=== PATIENT | male | born 1940 | race Caucasian/White ===

== ENCOUNTER → 2020-06-03 10:34 | Outpatient (BNVA) | payer MEDICARE, SELFPAY | PROVIDERS: Family Provider Nurse Practitioner Family; PCP Nurse Practitioner Family; Visit Provider Nurse Practitioner Family | DX: E03.9 Hypothyroidism, unspecified (principal); E78.2 Mixed hyperlipidemia; I10 Essential (primary) hypertension; Z00.00 Encounter for general adult medical examination without abnormal findings; Z12.5 Encounter for screening for malignant neoplasm of prostate; Z79.899 Other long term (current) drug therapy | CPT/HCPCS: 80053; 80061; 83036; 84443; 85025; G0103 ==

== ENCOUNTER → 2020-06-06 12:17 | Outpatient (BNVA) | payer MEDICARE, SELFPAY | PROVIDERS: Family Provider Nurse Practitioner Family; PCP Nurse Practitioner Family; Visit Provider Internal Medicine | DX: U07.1 COVID-19 (principal); R06.02 Shortness of breath | CPT/HCPCS: 80048; 83880; 87635 ==

== ENCOUNTER 2020-07-02 09:22 | Outpatient (CLI) | payer MEDICARE, SELFPAY ==
[2020-07-02 09:58] VITALS: BMI 26.2
--- NOTE | 2020-07-02 09:58 | ECG_ITS ---
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 Interpretive Statements NAME OF STUDY: LEXISCAN SESTAMIBI STRESS TEST INDICATION: SOB PROCEDURE: At the baseline, the blood pressure was 156/83 mmHg, oxygen saturation 94% with a heart rate of 67 bpm. The electrocardiogram showed normal sinus rhythm, normal axis with nonspecific ST depression in inferior leads. Poor anterior R wave progression. The Lexiscan was infused over a period of 20 seconds. A total of 0.4 milligrams of Lexiscan was infused. The stress phase was continued for a total of 5 minutes. Heart rate at the end of the stress phase was 93 bpm, oxygen saturation 94% with a blood pressure of 161/88 mmHg. The EKG at the peak infusion revealed sinus rhythm with no significant ST-T wave changes. PACs noted during Lexiscan infusion. Study was terminated due to protocol completion. Sestamibi was injected 20 seconds after the Lexiscan infusion. Blood pressure at the end of the recovery phase was 162/90 mmHg, oxygen saturation 93% with a heart rate of 98 beats per minute. Isolated PVCs noted in recovery. CONCLUSION: 1. No significant EKG changes with the LexiScan infusion. 2. No LexiScan induced chest pain or cardiac arrhythmia. 3. Normal blood pressure and heart rate response. 4. Sestamibi/sestamibi perfusion scan pending; see separate report. Electronically Signed On 07-02-2020 19:04:53 WET WASHER MACHINE by Madiha Fry M.D. [id number]
--- NOTE | 2020-07-02 09:58 | NMCV_ITS ---
NM pa perf SPECT r/s* [id number] Lisa Soler Age: 80 Gender: M : 1940 Exam Date: 07/02/2020 09:58 Ordering Phys: JENNIFER Sutton APRN Technologist: DARIAN Vasques Exam Location: [facility] Indications: SHORTNESS OF BREATH STRESS TEST Please see separate stress test report in [facility] for full findings IMAGE PROTOCOL Rest/Stress 1 Lexiscan Day Radiopharmaceutical Dose (mCi) Administration Site Administered by Rest: Tc-99m 10.6 IV DARIAN Molina Sestamibi Stress:Tc-99m 32.5 IV DARIAN Molina Sestamibi Rest: 02-Jul-2020 60 Discovery 630 Stress: 02-Jul-2020 30 Discovery 630 0.4mg Lexiscan. Images obtained in supine and prone position. SPECT RESULTS Technical Quality: Excellent Raw Data Analysis: Normal Image Corrections: No attenuation or motion correction applied Summed Stress Score: 0 Summed Rest Score: 0 Summed Difference Score: 0 PERFUSION FINDINGS SPECT images demonstrate homogeneous tracer distribution throughout the myocardium. FUNCTIONAL RESULTS (calculated via Gated SPECT) Stress Image LV EF (%): 44 Stress EDV (mL):126 TID: 1.18 Stress ESV (mL):70 FUNCTIONAL FINDINGS: The left ventricle is normal in size. Transient Ischemia Dilatation of 1.2. There is mildly reduced left ventricular global systolic function. The left ventricular ejection fraction is reduced with a value of 44%. There is mildly decreased wall thickening. IMPRESSIONS 1. Myocardial perfusion imaging is normal. 2. The left ventricular ejection fraction is reduced with a value of 44%. There is mildly decreased wall thickening. 3. Transient ischemic dilation index mildly elevated at 1.2. This may represent hypertensive response or subendocardial ischemia. Clinical correlation is advised. 4. No coronary ischemia based on the study. Madiha Fry MD (Electronically Signed) Final Date: 02 July 2020 18:59 S
[2020-07-02] MEDS: regadenoson 0.4 Mg/5 ml Syringe IVP (11:27)
[2020-07-02 11:40] VITALS: BP 162/90; PULSE 90
== END 2020-07-02 09:23 | disposition home or self-care (01) ==
LOC: CDL 09:29
PROVIDERS: PCP Nurse Practitioner Family; Visit Provider Internal Medicine
DX: R06.02 Shortness of breath (principal); I47.2 Ventricular tachycardia; R94.39 Abnormal result of other cardiovascular function study
CPT/HCPCS: 78452; 93017; A9500; J2785

== ENCOUNTER 2020-07-16 11:22 | Inpatient (IN) | payer MEDICARE, SELFPAY ==
[2020-07-16] VITALS (14 sets, daily range): BP systolic 105–189; BP diastolic 56–101; PULSE 70–118; RESP 18–25; TEMP 36.5–36.6; O2SAT 86–100; BMI 26.4
--- NOTE | 2020-07-16 11:30 | ECG_ITS ---
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 Measurements Intervals [place] Rate: 99 P: GA: QRS: -5 QRSD: 92 T: 86 QT: 355 QTc: 457 Interpretive Statements SINUS RHYTHM WITH PAC'S SEPTAL MYOCARDIAL INFARCTION , PROBABLY OLD [40+ ms Q WAVE IN V1/V2] No previous ECG available for comparison Electronically Signed On 07-16-2020 20:28:56 PM TECHNICIAN by Maidha Fry M.D. [email or web address]/[id number] f
--- NOTE | 2020-07-16 11:30 | XR_ITS ---
WS: [id number] Portable AP upright chest, 07/16/2020 Clinical Data: sob Comparison: PA and lateral chest, 09/11/2007. Findings: Bilateral lower lobe patchy opacities are present. These opacities could represent atelecta sis and/or pneumonia. The heart is enlarged. The aortic arch and descending aorta are slightly tortuo us. There may be a small left effusion. No pneumothorax is seen. The pulmonary vascularity is not inc reased. XR/XR chest 1V portable [id number] Impression: 1. Bilateral patchy lower lobe opacities which could represent atelectasis and/ or pneumonia. 2. Recommend repeat chest x-ray in one to 2 days. 3. Atherosclerosis and cardiomegaly. 4. Small left pleural effusion.
--- NOTE | 2020-07-16 12:10 | CT_ITS ---
WS: [id number] CT CHEST ANGIOGRAPHY WITH REFORMATS HISTORY: hemoptysis TECHNIQUE: Contiguous axial images are obtained through the chest during arterial injection of intrav enous contrast. Images are reconstructed to evaluate the pulmonary arteries. MIP imaging also reviewe d. All CT scans at [facility] use at least one of these dose optimization techniques: aut omated exposure control; mA and/or kV adjustment per patient size (includes targeted exams where dose is matched to clinical indication); or iterative reconstruction. CONTRAST: Omnipaque 350; 95 mL IV. DLP: 593.2 mGy.cm COMPARISON: 10/21/2010 Good opacification of the pulmonary arteries. No central or proximal emboli identified. Beyond the se gmental branches the opacification becomes limited. Normal size pulmonary artery. Moderate atheroscle rosis without aneurysm involving the aorta. Mild enlargement of the LEFT heart chambers. There is a l arge circumferential pericardial effusion. Diameter posterior to the LEFT ventricle is 2.1 cm. Diffuse mild groundglass attenuation throughout the lungs and interstitial edema. Small bilateral lay ering pleural effusions. No pneumonia or mass. Calcified bilateral hilar lymph nodes. No suspicious l ymph nodes. No adrenal mass. Mild tricuspid regurgitation into the hepatic veins. Mild anasarca. CT/CT angio chest PE protcl [id number] IMPRESSION: 1. No pulmonary embolism. 2. Large circumferential pericardial effusion. 3. Small bilateral pleural effusions. 4. Moderate pulmonary edema.
--- NOTE | 2020-07-16 12:13 | W.ED.SOB ---
HPI - SOB/Dyspnea General: Chief Complaint: Shortness of Breath/Dyspnea Stated Complaint: phy ref/heart issues Time Seen by Provider: 07/16/20 11:52 Source: patient and family Mode of arrival: ambulatory Limitations: no limitations History of Present Illness: HPI Narrative: Patient is a 80-year-old male who was recently diagnosed with A. fib a few months ago and started on Xarelto. He has been feeling short of breath for about 3 months now that has been progressively worsening. He thought it was bronchitis and has been given antibiotics for these. Antibiotics helped just a little bit but symptoms return. It was during the work-up for his bronchitis that he was discovered to have A. fib. He his PCP give him a trial of Lasix 20 mg twice daily to see if he helped. Last night while sleeping he had significant paroxysmal nocturnal dyspnea around 1 AM and felt like he was drowning. He had to sleep a reclining in his recliner after that. Urgent care therefore asked him to come to the emergency department to be evaluated. He also has dyspnea on exertion. MD elicited complaint: shortness of breath and cough Timing: constant and progressively worsening Severity: severe Exacerbating factors: lying flat and exertion Relieving factors: rest Associated symptoms: Reports cough and hemoptysis (This morning he noticed that); Deny abdominal pain, chest congestion, chest pain, diaphoresis, dizziness, extremity pain, fever(s), lightheadedness, myalgias, nausea, orthopnea, palpitations, paresthesias, polydipsia, polyuria, rash, sense of impending doom, syncope or vomiting Review of Systems General: Reports: 10 or more systems reviewed and unremarkable except in HPI and below Const: Denies: fever(s) or diaphoresis Eyes: Denies: change in vision or blurry vision ENMT: Denies: throat pain, enlarged tonsils, odynophagia, hoarseness, mouth pain or swelling of lips/tongue Card: Denies: chest pain, palpitations, lightheadedness, syncope or orthopnea Resp: Reports: hemoptysis (This morning he noticed that); Denies: chest congestion GI: Denies: abdominal pain, nausea or vomiting : Denies: flank pain, dysuria, urinary frequency, urinary urgency or urinary hesitancy Musc: Denies: extremity pain Skin/Breast: Denies: rash, pruritus or erythema Neuro: Denies: dizziness Endo: Denies: polyuria or polydipsia PFSH ED PFSH: Medical History (Updated 07/16/20 @ 17:05 by Mare Abbott MD, [facility]) Atrial flutter BPH (benign prostatic hyperplasia) Essential hypertension Hyperlipidemia Hypothyroidism Surgical History History of AAA (abdominal aortic aneurysm) repair Family History (Updated 07/16/20 @ 16:25 by Antoine Soto MD) Mother Diabetes CAD (coronary artery disease) Social History Smoking and tobacco status: former smoker Quit status (tobacco): has quit using tobacco Second hand smoke exposure: No Smoking risk assessment/counseling performed?: No Alcohol intake: never Desire information about alcohol rehabilitation?: No Counseling given: No Desire information about substance/drug rehabilitation?: No Counseling given: No Physical Exam Const: COMMON NORMALS: no acute distress, average body habitus, patient oriented x3, no limitations, healthy appearing, alert and well nourished HENMT: COMMON NORMALS: normocephalic, atraumatic and moist oral mucous membranes HEAD & SCALP: normocephalic and atraumatic Neck/C-Spine: COMMON NORMALS: no meningeal signs and no JVD Resp: COMMON NORMALS: normal respiratory effort, No retractions, No use of accessory muscles and percussion normal AUSCULTATION: rales bilateral at the base PERCUSSION: percussion normal Cardio: COMMON NORMALS: no JVD, regular rate, regular rhythm, S1 normal heart sound present, S2 normal heart sound present, No gallops present (Cardio), No clicks present (Cardio), No murmurs present (Cardio), No rub (Cardio) and Peripheral pulses 2+ throughout RATE: regular rate RHYTHM: regular rhythm HEART SOUNDS: S1 normal heart sound present and S2 normal heart sound present PERIPHERAL PULSES: Peripheral pulses 2+ throughout GI: COMMON NORMALS: Normal to inspection, nondistended, normoactive bowel sounds present, Soft to palpation, non-tender, No hepatosplenomegaly present, no masses and no bruits PALPATION: Yes Soft to palpation and Yes No hepatosplenomegaly present Extremity: COMMON NORMALS: normal to inspection, full ROM, capillary refill normal and no calf tenderness GENERAL: Yes edema (2+ pitting) Neuro: COMMON NORMALS: patient oriented x3 SENSORIUM/ORIENTATION: Yes alert MENINGEAL SIGNS: Yes no meningeal signs Skin: COMMON NORMALS: no rashes or lesions noted, no wounds, turgor normal, no jaundice, no petechiae and no mottling GENERAL SKIN EXAM: no rashes or lesions noted and turgor normal Course Reevaluation(s): Reevaluation #1: Discussed his lab and imaging findings with him. He has pulmonary edema most likely from CHF. He also has a large pericardial effusion on CT. proBNP elevated. Because of his significant shortness of breath at home and his findings on imaging he is advised to be admitted to the hospital for further evaluation and management. He voiced understanding and is in agreement with the plan. Time: 16:00 Consultations: Consultation #1: Discussed the patient Dr. Soto, hospitalist. He kindly accepted the patient to his service. Time: 16:30 Vital Signs: Vital signs: Vital Signs Temperature 97.7 F 07/16/20 11:44 Pulse Rate 103 H 07/16/20 17:51 Respiratory Rate 18 07/16/20 17:51 Blood Pressure 134/94 07/16/20 17:51 Pulse Oximetry 92 07/16/20 17:51 MDM - SOB/Dyspnea MDM Narrative: Medical decision making narrative: 80-year-old male with new onset CHF with CHF exacerbation, with pericardial and pleural effusions. He also has significant shortness of breath at home although he is not hypoxic here in the emergency department. He is admitted to the hospital for further evaluation and management of CHF exacerbation. Differential Diagnosis: Shortness of Breath Differential Diagnosis: Likely acute exacerbation of chronic obstructive airways disease, congestive heart failure and community acquired pneumonia Medical Records: Attestation: I reviewed the patient's medical records. Lab Data: Attestation: I reviewed the patient's lab results. Labs: Lab Results 07/16/20 07/16/20 07/16/20 Range/Units 12:45 12:45 12:45 WBC 9.0 (4.0-10.0) 10^3/ uL RBC 4.96 (4.1-5.3) 10^6/u L Hgb 13.7 (11.7-16.6) g/dL Hct 42.4 (42.0-52.0) % MCV 85.5 (80-94) fL MCH 27.6 L (28.0-34.0) pg MCHC 32.3 (30.0-36.0) g/dL RDW 16.0 H (12.1-15.1) % Plt Count 197 (130-400) 10^3/c mm MPV 10.3 (7.4-10.4) fL Neut % (Auto) 73.3 % Lymph % (Auto) 19.4 % Marin % (Auto) 6.6 % Eos % (Auto) 0.1 % Baso % (Auto) 0.4 % Neut # (Auto) 6.61 (1.8-7.7) 10^3/u L Lymph # (Auto) 1.8 (0.8-4.8) 10^3/u L Marin # (Auto) 0.6 (0.2-0.9) 10^3/u L Eos # (Auto) 0.0 (0.0-0.8) 10^3/u L Baso # (Auto) 0.0 (0.0-0.1) 10^3/u L Nucleated RBC % (a uto) 0 % Nucleated RBCs # 0.0 /100WBC Sodium 140 (136-145) mmol/L Potassium 3.7 (3.5-5.1) mmol/L Chloride 104 (98-107) mmol/L Carbon Dioxide 23 (22-29) mmol/L Anion Gap 16.7 (5-19) BUN 9 (8-23) mg/dL Creatinine 0.8 (0.7-1.2) mg/dL GFR Calculation Not Reportable Glucose 96 (65-115) mg/dL Calculated Osmolal ity 289 (285-295) mOsm/k g Calcium 9.1 (8.5-10.5) mg/dL Total Bilirubin 1.4 H (0.15-1.2) mg/dL AST 22 (0-40) U/L ALT 17 (0-41) U/L Alkaline Phosphata se 128 (40-130) IU/L Troponin T Baselin e 64 H (0-15) ng/L Troponin T 120 Min [place] (0-15) ng/L Delta Troponin T (0-10) ABS# NT-Pro-B Natriuret Pep 1661 H (0-450) pg/mL Total Protein 7.5 (6.6-8.7) g/dL Albumin 3.9 (3.5-5.2) g/dL Globulin 3.6 (1.3-4.6) g/dL 07/16/20 Range/Units 14:59 WBC (4.0-10.0) 10^3/ uL RBC (4.1-5.3) 10^6/u L Hgb (11.7-16.6) g/dL Hct (42.0-52.0) % MCV (80-94) fL MCH (28.0-34.0) pg MCHC (30.0-36.0) g/dL RDW (12.1-15.1) % Plt Count (130-400) 10^3/c mm MPV (7.4-10.4) fL Neut % (Auto) % Lymph % (Auto) % Marin % (Auto) % Eos % (Auto) % Baso % (Auto) % Neut # (Auto) (1.8-7.7) 10^3/u L Lymph # (Auto) (0.8-4.8) 10^3/u L Marin # (Auto) (0.2-0.9) 10^3/u L Eos # (Auto) (0.0-0.8) 10^3/u L Baso # (Auto) (0.0-0.1) 10^3/u L Nucleated RBC % (a uto) % Nucleated RBCs # /100WBC Sodium (136-145) mmol/L Potassium (3.5-5.1) mmol/L Chloride (98-107) mmol/L Carbon Dioxide (22-29) mmol/L Anion Gap (5-19) BUN (8-23) mg/dL Creatinine (0.7-1.2) mg/dL GFR Calculation Glucose (65-115) mg/dL Calculated Osmolal ity (285-295) mOsm/k g Calcium (8.5-10.5) mg/dL Total Bilirubin (0.15-1.2) mg/dL AST (0-40) U/L ALT (0-41) U/L Alkaline Phosphata se (40-130) IU/L Troponin T Baselin e (0-15) ng/L Troponin T 120 Min [place] 62.72 H (0-15) ng/L Delta Troponin T -1.28 L (0-10) ABS# NT-Pro-B Natriuret Pep (0-450) pg/mL Total Protein (6.6-8.7) g/dL Albumin (3.5-5.2) g/dL Globulin (1.3-4.6) g/dL Imaging Data^: CXR: Attestation: I personally reviewed and interpreted this imaging study as follows: Radiologist's impression: [facility] [address] [facility] [place] [address] XRay Report Signed Patient: Lisa Soler #: [id number] : 1Acct#:[id number] Age/Sex: 80 / MADM Date: 07/16/20 Loc: [facility]/Bed: Attending Dr: Ordering Provider/Ordering MD: Kostas Ellis MD Date of Service: 07/16/20 Procedure(s): XR chest 1V portable [id number] Accession Number(s): [id number] Report Number: [id number] WS: [id number] Portable AP upright chest, 07/16/2020 Clinical Data: sob Comparison: PA and lateral chest, 09/11/2007. Findings: Bilateral lower lobe patchy opacities are present. These opacities could represent atelectasis and/or pneumonia. The heart is enlarged. The aortic arch and descending aorta are slightly tortuous. There may be a small left effusion. No pneumothorax is seen. The pulmonary vascularity is not increased. XR/XR chest 1V portable [id number] Impression: 1. Bilateral patchy lower lobe opacities which could represent atelectasis and/or pneumonia. 2. Recommend repeat chest x-ray in one to 2 days. 3. Atherosclerosis and cardiomegaly. 4. Small left pleural effusion. Dictated By:Sena Spears MD Signed By:Sena Spears MDSigned Date/Time:07/16/20 1202 DD/ 1200 CTA Chest: Radiologist's impression: [facility] [address] [place] [address] CT Scan Report Signed Patient: Lisa Soler #: [id number] : 1Acct#:[id number] Age/Sex: 80 / MADM Date: 07/16/20 Loc: [facility]/Bed: Attending Dr: Ordering Provider/Ordering MD: Mare Abbott MD, [facility] Date of Service: 07/16/20 Procedure(s): CT angio chest PE protcl [id number] Accession Number(s): [id number] Report Number: [id number] WS: [id number] CT CHEST ANGIOGRAPHY WITH REFORMATS HISTORY: hemoptysis TECHNIQUE: Contiguous axial images are obtained through the chest during arterial injection of intravenous contrast. Images are reconstructed to evaluate the pulmonary arteries. MIP imaging also reviewed. All CT scans at [facility] use at least one of these dose optimization techniques: automated exposure control; mA and/or kV adjustment per patient size (includes targeted exams where dose is matched to clinical indication); or iterative reconstruction. CONTRAST: Omnipaque 350; 95 mL IV. DLP: 593.2 mGy.cm COMPARISON: 10/21/2010 Good opacification of the pulmonary arteries. No central or proximal emboli identified. Beyond the segmental branches the opacification becomes limited. Normal size pulmonary artery. Moderate atherosclerosis without aneurysm involving the aorta. Mild enlargement of the LEFT heart chambers. There is a large circumferential pericardial effusion. Diameter posterior to the LEFT ventricle is 2.1 cm. Diffuse mild groundglass attenuation throughout the lungs and interstitial edema. Small bilateral layering pleural effusions. No pneumonia or mass. Calcified bilateral hilar lymph nodes. No suspicious lymph nodes. No adrenal mass. Mild tricuspid regurgitation into the hepatic veins. Mild anasarca. CT/CT angio chest PE protcl [id number] IMPRESSION: 1. No pulmonary embolism. 2. Large circumferential pericardial effusion. 3. Small bilateral pleural effusions. 4. Moderate pulmonary edema. Dictated By:Delmy Ocampo DO Signed By:Delmy Ocampo DOSigned Date/Time:07/16/20 1421 DD/ 1414 EKG Data^: EKG 1: Attestation: I personally reviewed and interpreted this EKG as follows: EKG Interpretation Date: 07/16/20 EKG interpretation time: 12:35 Prior EKG tracings: not available for review Interpretation: Atrial fibrillation Heart rate is [address] changes. EKG 2: Attestation: I personally reviewed and interpreted this EKG as follows: EKG Interpretation Date: 07/16/20 EKG interpretation time: 14:28 Prior EKG tracings: available for review Interpretation: Atrial fibrillation. Heart rate [address] changes. EKG 3: Attestation: I personally reviewed and interpreted this EKG as follows: EKG Interpretation Date: 07/16/20 EKG interpretation time: 17:44 Prior EKG tracings: available for review Interpretation: Atrial fibrillation. Heart rate [address] changes. Unchanged from earlier Discharge Plan Discharge Patient Disposition: Admitted As Inpatient Admit Provider: Antoine Soto Clinical Impression: CHF exacerbation, Pulmonary edema Condition: Stable Coding Level of Care Code ED Global Supply Chain Vice President for Chg Fwd Exam Comprehensive
[2020-07-16 12:51] LABS: Basophils % 0.4 %; Eosinophils % 0.1 %; Hematocrit 42.4 % (42.0-52.0); Hemoglobin 13.7 g/dL (11.7-16.6); Lymphocytes # 1.8 10^3/uL (0.8-4.8); Lymphocytes % 19.4 %; Mean Corpuscular HGB Conc 32.3 g/dL (30.0-36.0); Mean Corpuscular Hemoglobin 27.6 pg (28.0-34.0); Mean Corpuscular Volume 85.5 fL (80-94); Mean Platelet Volume 10.3 fL (7.4-10.4); Monocytes # 0.6 10^3/uL (0.2-0.9); Monocytes % 6.6 %; Neutrophils # 6.61 10^3/uL (1.8-7.7); Neutrophils % 73.3 %; Nucleated Red Blood Cells % 0 %; Platelet Count 197 10^3/cmm (130-400); Red Blood Count 4.96 10^6/uL (4.1-5.3)
--- NOTE | 2020-07-16 13:30 | ECG_ITS ---
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 Measurements Intervals [place] Rate: 90 P: SC: QRS: -18 QRSD: 89 T: 89 QT: 362 QTc: 445 Interpretive Statements ATRIAL FIBRILLATION WITH ABERRANT CONDUCTION OR VENTRICULAR PREMATURE COMPLEXES SEPTAL MYOCARDIAL INFARCTION , PROBABLY OLD [40+ ms Q WAVE IN V1/V2] No previous ECG available for comparison Electronically Signed On 07-17-2020 17:41:59 CIRCULATION ASSISTANT by Ronny North M.D. [id number]
[2020-07-16 13:32] LABS: Troponin(5th) Baseline 64 ng/L (0-15)
[2020-07-16 13:41] LABS: Alanine Aminotransferase 17 U/L (0-41); Albumin Level 3.9 g/dL (3.5-5.2); Alkaline Phosphatase 128 IU/L (40-130); Anion Gap 16.7 (5-19); Aspartate Amino Transferase 22 U/L (0-40); Blood Urea Nitrogen 9 mg/dL (8-23); Calcium 9.1 mg/dL (8.5-10.5); Carbon Dioxide 23 mmol/L (22-29); Chloride 104 mmol/L (98-107); Globulin 3.6 g/dL (1.3-4.6); Glucose 96 mg/dL (65-115); NT Pro B Type Natriuretic Pept 1661 pg/mL (0-450); Osmolality Calculated 289 mOsm/kg (285-295); Potassium 3.7 mmol/L (3.5-5.1); Sodium 140 mmol/L (136-145); Total Bilirubin 1.4 mg/dL (0.15-1.2); Total Protein 7.5 g/dL (6.6-8.7)
[2020-07-16] MEDS: iohexol 350 mg/mL 100 mL Btl IV (14:15)
[2020-07-16] MEDS: FUROsemide 10 mg/mL SDV 4mL 40 MG IVP (14:24)
--- NOTE | 2020-07-16 14:29 | USCV_ITS ---
Ryder Lisa Age: 80 Gender: M : 1940 Exam Date: 07/16/2020 15:11 Ordering Phys: Mare Abbott MD [facility] Technologist: Flako Lei Exam Location: [facility] – [place] Indication: effusion, SOB BP: 150 / 90 HR: 103 Rhythm: Sinus Technical Quality: Adequate MEASUREMENTS (Male / Female) Normal Values 2D ECHO LV Diastolic Diameter PLAX 4.6 cm 4.2 - 5.9 / 3.9 - 5.3 cm LV Systolic Diameter PLAX 3.4 cm IVS Diastolic Thickness 1.1 cm 0.6 - 1.0 / 0.6 - 0.9 cm IVS Systolic Thickness 1.5 cm LVPW Diastolic Thickness 1.3 cm 0.6 - 1.0 / 0.6 - 0.9 cm LVPW Systolic Thickness 1.2 cm LVOT Diameter 2.0 cm LV Ejection Fraction 2D Teich 50.9 % LV Ejection Fraction MOD 2C 50.3 % LV Ejection Fraction 2C AL 49.9 % LA Diameter 3.8 cm LA Width 4.8 cm LA Height 5.5 cm RA Width 3.7 cm RA Height 5.4 cm M-MODE LV Diastolic Diameter MM 4.7 cm 4.2 - 5.9 / 3.9 - 5.3 cm LV Systolic Diameter MM 3.5 cm LV Ejection Fraction MM Teich 51.4 % IVS Diastolic Thickness MM 1.5 cm 0.6 - 1.0 / 0.6 - 0.9 cm IVS Systolic Thickness MM 1.5 cm LVPW Diastolic Thickness MM 1.4 cm 0.6 - 1.0 / 0.6 - 0.9 cm LVPW Systolic Thickness MM 1.8 cm RV Diastolic Diameter MM 2.2 cm Aortic Annulus Diameter 3.1 cm LA Ao Ratio MM 1.3 MV E Point Septal Separation 1.4 cm DOPPLER AV Peak Velocity 162.0 cm/s LVOT Peak Velocity 75.0 cm/s AV Area Cont Eq vti 1.6 cm squared AV Area Cont Eq pk 1.5 cm squared MV Area PHT 5.0 cm squared Mitral E to A Ratio 1.3 MV E' Velocity 149.0 cm/s Mitral E to LV E' Septal Ratio 18.1 TR Peak Velocity 122.0 cm/s TR Peak Gradient 6.0 mmHg TV Peak E Velocity 85.0 cm/s Right Atrial Pressure 3.0 mmHg Pulmonary Artery Systolic Pressu 9.0 mmHg FINDINGS Left Ventricle Normal left ventricular size and wall thickness. LV systolic function is grossly borderline reduced. LVEF is 45 to 50%. Normal left ventricular wall thickness. Diastolic function cannot be assessed because of atrial fibrillation. Right Ventricle The right ventricle is normal in size and function. Right Atrium The right atrium is normal in size. Left Atrium The left atrium is enlarged. Mitral Valve Atrial valve is thickened without significant stenosis or prolapse. There is mild mitral regurgitation. Aortic Valve Aortic valve is calcified. There is mild aortic stenosis with aortic valve area of 1.57 cm squared and mean gradient across aortic valve of 5 mmHg. There is no aortic regurgitation. Tricuspid Valve Structurally normal tricuspid valve without significant stenosis or regurgitation. Pulmonary artery systolic pressure is normal. Pulmonic Valve Structurally normal pulmonic valve without significant stenosis. There is no pulmonic regurgitation. Pericardium There is a small to moderate pericardial effusion. No echocardiographic signs of tamponade. Aorta Normal ascending aorta dimension. CONCLUSIONS LV systolic function is borderline reduced. LVEF is 45 to 50%. Regional wall motion abnormalities cannot be assessed because of atrial fibrillation. Diastolic function cannot be assessed because of atrial fibrillation. Mild mitral regurgitation is present. Mild aortic stenosis is noted. There is a small to moderate sized pericardial effusion. No echocardiographic signs of tamponade. No comparison studies are available. Ronny North MD (Electronically Signed) Final Date: 16 July 2020 17:57 S
[2020-07-16 15:59] LABS: Troponin 5 2HR 62.72 ng/L (0-15)
[2020-07-16 16:01] LABS: Troponin 5 2HR Delta -1.28 ABS# (0-10)
--- NOTE | 2020-07-16 16:21 | PM.HP ---
Providers/Chief Complaint Primary Care Provider: MARISELA Garrido Chief Complaint: phy ref/heart issues History of Present Illness Lisa Soler is a 80 year old male with a past medical history of hypertension, hyperlipidemia, BPH, hypothyroidism, abdominal aortic aneurysm repair, history of extensive peripheral vascular disease status post multiple thrombectomies and grafting, former smoker, recent diagnosis of atrial fibrillation placed on Xarelto, recent diagnosis of heart failure placed on Lasix, recent negative stress test, who presents to [facility] due to shortness of breath. Patient tells me that he is recent diagnosed with atrial fibrillation and CHF, placed on Xarelto Lasix. Since March he has been experiencing shortness of breath, patient is fairly physically active, although retired, with his day-to-day activities he was doing fine, until recently, he has developed shortness of breath with exertion, it is now progressed to his shortness of breath at rest, minimal bilateral extreme edema, no hemoptysis, no chest pain, no calf pain, no calf swelling, no exposure to COVID-19, no fevers, chills, no cough. No diagnosis of COPD. No diagnosis of CVA. But does have extensive peripheral vascular disease status post thrombectomies and grafting, when he was young. Patient tells me that over the last few days he has become much more short of breath, with orthopnea, paroxysmal nocturnal dyspnea. Review of Systems Const: Denies: fever(s), chills, fatigue or malaise Eyes: Denies: change in vision or blurry vision ENMT: Denies: nasal congestion Card: Reports: palpitations, edema and syncope; Denies: chest pain Resp: Denies: dyspnea, productive cough, non-productive cough or wheezing GI: Denies: abdominal pain, nausea, vomiting, hematemesis, diarrhea, constipation, hematochezia or melena : Denies: flank pain, difficulty urinating, dysuria or urinary frequency Musc: Denies: neck pain or back pain Skin/Breast: Denies: rash Neuro: Denies: headache(s), dizziness or vertigo Psych: Denies: anxiety or depression Endo: Denies: polyuria or polydipsia Medications/Allergies Home Medications Medication Instructions Recorded Confirmed Last Taken Type aspirin 81 mg tablet,delayed 81 mg PO DAILY 06/06/20 07/16/20 07/16/20 History release levothyroxine 50 mcg capsule 50 mcg PO DAILY 06/06/20 07/16/20 07/16/20 History tamsulosin 0.4 mg capsule 0.4 mg PO DAILY 06/06/20 07/16/20 07/15/20 History finasteride 5 mg tablet 5 mg PO DAILY #90 tab 06/25/20 07/16/20 07/15/20 Rx rivaroxaban 20 mg tablet 20 mg PO DAILY #90 tab 06/26/20 07/16/20 07/15/20 Rx furosemide 40 mg tablet 40 mg PO DAILY #10 tab 07/08/20 07/16/20 07/16/20 Rx amlodipine 5 mg tablet 5 mg PO DAILY #90 tab 07/15/20 07/16/20 07/16/20 Rx atorvastatin 80 mg PO DAILY 07/16/20 07/16/20 07/15/20 History cilostazol 100 mg PO BID 07/16/20 07/16/20 07/16/20 History multivitamin 1 tab PO DAILY 07/16/20 07/16/20 07/16/20 History vit C,S-Vs-ljvpm-lutein-zeaxan 1 tab PO BID 07/16/20 07/16/20 07/16/20 History [PreserVision AREDS-2] Allergies Allergy/AdvReac Type Severity Reaction Status Date / Time No Known Allergies Allergy Verified 07/16/20 11:48 PFSH Acute PFSH: Medical History (Updated 07/16/20 @ 16:26 by Antoine Soto MD) Atrial flutter BPH (benign prostatic hyperplasia) Essential hypertension Hyperlipidemia Hypothyroidism Surgical History History of AAA (abdominal aortic aneurysm) repair Family History (Updated 07/16/20 @ 16:25 by Antoine Soto MD) Mother Diabetes CAD (coronary artery disease) Social History Smoking and tobacco status: former smoker Quit status (tobacco): has quit using tobacco Second hand smoke exposure: No Smoking risk assessment/counseling performed?: No Alcohol intake: never Desire information about alcohol rehabilitation?: No Counseling given: No Desire information about substance/drug rehabilitation?: No Counseling given: No Vitals/I&O/Wt Last Vital Signs Temp 97.7 F 07/16/20 11:44 Pulse 118 H 07/16/20 11:44 Resp 18 07/16/20 11:44 BP 169/88 07/16/20 11:44 Pulse Ox 93 07/16/20 11:44 Weight last 48 hrs Weight 76.657 kg Physical Exam Const: COMMON NORMALS: no acute distress and patient oriented x3 GENERAL APPEARANCE: cooperative and comfortable HENMT: COMMON NORMALS: normocephalic HEAD & SCALP: normocephalic Eye: COMMON NORMALS: Equal, round and reactive pupils present and EOMs intact bilaterally GENERAL EYE: appearance normal, both eyes and all related structures PUPIL: Yes Equal, round and reactive pupils present Neck/C-Spine: COMMON NORMALS: full ROM, no lymphadenopathy, no JVD and Thyroid normal THYROID: Thyroid normal Lymph: LYMPHATIC: no lymphadenopathy noted Resp: COMMON NORMALS: normal respiratory effort, No retractions, No use of accessory muscles and clear to auscultation bilaterally AUSCULTATION: diminished lung sounds bilateral in the lower lung hernández Cardio: COMMON NORMALS: no JVD, regular rate, regular rhythm, S1 normal heart sound present, S2 normal heart sound present, No gallops present (Cardio), No clicks present (Cardio) and No murmurs present (Cardio) RATE: regular rate RHYTHM: regular rhythm HEART SOUNDS: S1 normal heart sound present and S2 normal heart sound present GI: COMMON NORMALS: Normal to inspection, nondistended, normoactive bowel sounds present, Soft to palpation, non-tender and No hepatosplenomegaly present PALPATION: Yes Soft to palpation and Yes No hepatosplenomegaly present Extremity: COMMON NORMALS: normal to inspection, full ROM and no pedal edema Neuro: COMMON NORMALS: patient oriented x3, CN's II-XII intact bilaterally, moves all extremities and no focal motor deficits Psych: COMMON NORMALS: mental status grossly normal, Normal thought process present and cooperative THOUGHT PROCESS: Normal thought process present Data : 07/16/20 12:45 07/16/20 12:45 A&P Assessment and plan (1) CHF exacerbation: -CT angiogram showing pulmonary edema, bilateral pleural effusions -BNP 1661 -CT angiogram did show pericardial effusion Plan: -Admit to cardiac stepdown unit -Follow echocardiogram results -Lasix 40 mg IV twice daily, will rule out pericardial effusion before administering -Potassium replacement -Daily I's and O's -Fluid restrictions 1500 cc -If EF is reduced, will consult cardiology for coronary angiogram Status: Acute (2) Pulmonary edema: Status: Acute (3) Atrial flutter: -Continue Xarelto -Heart rates in the 120s, start metoprolol 12.5 twice daily Status: Acute (4) Hyperlipidemia: Continue statin Status: Acute (5) Essential hypertension: Continue amlodipine Status: Acute (6) Hypothyroidism: Continue levothyroxine Status: Inactive (7) NSTEMI (non-ST elevated myocardial infarction): -Baseline troponin 66 - likely related to CHF exacerbation, cannot rule out underlying CAD -No chest pain complaints -Cardiac stress test on 07/02/2020 showed a EF of 44%, tid 1.2, no significant obstructive CAD -Continue aspirin, statin, metoprolol, Xarelto as above Status: Acute Attestations Medical Necessity Statement*: Patient requires hospitalization, inpatient, greater than 2 midnights, for CHF exacerbation Coding Level of Care Code Acute Rn Wound for [facility] Fwd Diagnoses CHF exacerbation I50.9 Pulmonary edema J81.1 Atrial flutter I48.92 Hyperlipidemia E78.5 Essential hypertension I10 Hypothyroidism E03.9 NSTEMI (non-ST elevated myocardial infarction) I21.4
--- NOTE | 2020-07-16 17:30 | ECG_ITS ---
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 Measurements Intervals [place] Rate: 88 P: CT: QRS: -6 QRSD: 89 T: 94 QT: 360 QTc: 438 Interpretive Statements ATRIAL FIBRILLATION NONSPECIFIC ST & T-WAVE ABNORMALITY Compared to ECG 07/16/2020 14:28:38 T-wave abnormality now present Ventricular premature complex(es) no longer present Aberrant conduction of supraventricular beat(s) no longer present Myocardial infarct finding no longer present Electronically Signed On 07-16-2020 18:32:53 INTERNATIONAL TRAVEL CONSULTANT by Madiha Fry M.D. [id number]
--- NOTE | 2020-07-16 19:08 | PC.NURSE ---
Verified with Dr. Soto to retime Lasix for 12 hours after the dose that we given in the ED.
[2020-07-16 19:11] LABS: Troponin 5 6HR 67.62 ng/L (0-15); Troponin 5 6HR Delta 3.62 ng/L (0-12)
[2020-07-16] MEDS: cilostazol 100 mg Tablet PO (19:52)
[2020-07-16] MEDS: metoprolol tartrate 25 mg Tablet 12.5 MG PO (19:52)
[2020-07-16] MEDS: potassium chloride ER 20 mEq Tablet PO (19:53)
--- NOTE | 2020-07-16 23:30 | PC.NURSE ---
2 L NC placed on patient due to maintaining oxygen saturation of 85 percent on room air. Will monitor closely.
[2020-07-17] VITALS (11 sets, daily range): BP systolic 95–152; BP diastolic 54–92; PULSE 62–98; RESP 15–20; TEMP 36.7–37.1; O2SAT 91–95
--- NOTE | 2020-07-17 01:11 | PC.NURSE ---
Patient has no complaints at this time. Will monitor.
[2020-07-17] MEDS: FUROsemide 10 mg/mL SDV 4mL 40 MG IVP ×2 (02:39→14:18)
[2020-07-17 05:07] LABS: Basophils # 0.1 10^3/uL (0.0-0.1); Basophils % 0.7 %; Eosinophils # 0.1 10^3/uL (0.0-0.8); Eosinophils % 0.8 %; Hematocrit 37.7 % (42.0-52.0); Hemoglobin 12.3 g/dL (11.7-16.6); Lymphocytes # 2.5 10^3/uL (0.8-4.8); Lymphocytes % 33.2 %; Mean Corpuscular HGB Conc 32.6 g/dL (30.0-36.0); Mean Corpuscular Hemoglobin 27.3 pg (28.0-34.0); Mean Corpuscular Volume 83.8 fL (80-94); Mean Platelet Volume 10.8 fL (7.4-10.4); Monocytes # 0.6 10^3/uL (0.2-0.9); Monocytes % 7.6 %; Neutrophils # 4.25 10^3/uL (1.8-7.7); Neutrophils % 57.4 %; Nucleated Red Blood Cells % 0 %; Platelet Count 198 10^3/cmm (130-400); White Blood Count 7.4 10^3/uL (4.0-10.0)
[2020-07-17] MEDS: metoprolol tartrate 25 mg Tablet 12.5 MG PO ×2 (05:22→17:22)
[2020-07-17 05:25] LABS: Alanine Aminotransferase 13 U/L (0-41); Albumin Level 3.3 g/dL (3.5-5.2); Alkaline Phosphatase 104 IU/L (40-130); Anion Gap 15.4 (5-19); Aspartate Amino Transferase 18 U/L (0-40); Blood Urea Nitrogen 15 mg/dL (8-23); Calcium 8.9 mg/dL (8.5-10.5); Carbon Dioxide 24 mmol/L (22-29); Chloride 98 mmol/L (98-107); Globulin 3.3 g/dL (1.3-4.6); Glucose 86 mg/dL (65-115); Magnesium 1.6 mg/dL (1.7-2.3); Osmolality Calculated 278 mOsm/kg (285-295); Phosphorus 3.6 mg/dL (2.5-4.5); Potassium 3.4 mmol/L (3.5-5.1); Sodium 134 mmol/L (136-145); Total Bilirubin 1.5 mg/dL (0.15-1.2); Total Protein 6.6 g/dL (6.6-8.7)
[2020-07-17 05:28] LABS: Lactic Sepsis W/Reflex 0.9 mmol/L (0.5-2.2)
[2020-07-17 05:38] LABS: Estmated Average Glucose 105; Hemoglobin A1C 5.3 % (4.0-6.0); NT Pro B Type Natriuretic Pept 1486 pg/mL (0-450); Procalcitonin 0.03 ng/mL (0-0.5)
--- NOTE | 2020-07-17 05:43 | PC.NURSE ---
Patient has been educated on fluid restriction and verbalized understandig.
[2020-07-17 05:54] LABS: Chol HDL Ratio 2.38 mg/dL (1.0-5.00); Cholesterol 88 mg/dL (0-200); HDL Cholesterol 37 mg/dL (60-100); LDL Cholesterol Calculated 39 mg/dL (50-129); LDL HDL Ratio 1.05 RATIO (0.00-3.22); Triglycerides 60 mg/dL (0-150)
--- NOTE | 2020-07-17 06:07 | PC.NURSE ---
Family member called stating those visitor rules are stupid, they needs to be changed. I thought anyone could visit him. [employer] doesn't do that.
--- NOTE | 2020-07-17 06:09 | PC.NURSE ---
Patient has been educated on fluid restriction and verbalized understanding.
--- NOTE | 2020-07-17 08:23 | ECG_ITS ---
[facility] Test Date: 2020-07-17 Pat Name: Lisa Soler Department: Room: 112 Gender: Male Wheat Inspector: : 1940 Requested By: Antoine Soto Order Number: [id number] Michelle MD: Ronny North M.D. Measurements Intervals [place] Rate: 89 P: [place]: QRS: 6 QRSD: 101 T: 93 QT: 397 QTc: 483 Interpretive Statements Normal sinus rhythm with premature supraventricular contractions. NONSPECIFIC T-WAVE ABNORMALITY Compared to ECG 07/16/2020 17:44:30 A. fib no longer present. Electronically Signed On 07-17-2020 17:35:37 HOME ENERGY CONSULTANT SUPERVISOR by Ronny North M.D. [id number]
[2020-07-17] MEDS: potassium chloride ER 20 mEq Tablet PO ×2 (08:29→20:06)
[2020-07-17] MEDS: cilostazol 100 mg Tablet PO ×2 (08:29→17:22)
[2020-07-17] MEDS: multivitamin therapeutic Tablet 1 TAB PO (08:29)
[2020-07-17] MEDS: levothyroxine 50 mcg Tablet PO (08:29)
[2020-07-17] MEDS: aspirin 81 mg EC Tablet PO (08:29)
[2020-07-17] MEDS: magnesium oxide 400 mg tablet PO ×2 (09:08→17:22)
--- NOTE | 2020-07-17 09:50 | PC.NURSE ---
PATIENT STATES THAT HIS MEDICATIONS ARE TAKEN PRIOR TO BEDTIME. DR. COLEMAN OK'D MEDICATION TIMES TO BE CHANGED.
--- NOTE | 2020-07-17 10:57 | PC.CHAP ---
Pastoral Care Encounter/Spiritual Assessment Type of Contact [] Declined education department registrar visit [] Patient/Family/Request visit [] Outpatient visit [] Follow-up visit [] Physician referral [] Code/Alert [x] Routine visit [] Staff referral [] Actively dying [] Patient sleeping [] Family support [] [] Out of room [] Palliative care [] [x] Receiving care in room [] Pre-surgical visit [] Trauma [] Long length of stay [] ICU visit [] Other: Relational/Emotional Strength [x] Patient feels connected with others/family/visitors/staff [] Distress [] Loneliness/isolation [] Abandonment Spirituality of Patient [x] Person of Cherelle [] Attends Yazidi of their [place]lle [x] Believes in Prayer [] Reads Bible or Alevism materials [] There are Spiritual issues to be addressed Java Developer Architect Interventions [x] Prayer [x] Active listening [x] Non-anxious presence [x] Spiritual/emotional support [] Crisis/trauma care [x] Spiritual counseling [] Bereavement support [] Provided bereavement packet [] Provided Bible/devotional materials [] Provided toy/stuffed animal, coloring book to patient or family member [] Provided Communion [] Anointing/[place] [] Salvation [x] Completed spiritual assessment [] Other: Impact on Illness or Injury [] Angry [] Fearful [] Anxious [] Often cries [] Exhaustion [] Unable to work [] Unable to attend sabianist [] Unable to walk/stand [] Unable to read [] Unable to drive [] Unable to eat/drink [] Unable to sleep [] Unable to be with family [] Patient intubated [] Other: Summary Tests on heart everything looks good has a good attitude, floods in lungs, getting ready to go home in a day or two Time spent with patient 10 mins
--- NOTE | 2020-07-17 15:18 | P.PN_ITS ---
Subjective Subjective: Interval history: This morning patient was examined, tells me he is doing better, no fevers, chills, no nausea, no vomiting, no chest pain Vitals/I&O/Wt Last Vital Signs Temp 98.1 F 07/17/20 11:36 Pulse 98 07/17/20 14:00 Resp 20 H 07/17/20 11:36 BP 121/71 07/17/20 11:36 Pulse Ox 94 07/17/20 11:36 07/17/20 07/17/20 07/17/20 06:59 14:59 22:59 Intake Total 800 / 1040 480 / 480 Output Total 1200 / 1200 400 / 400 Balance -400 / -160 80 / 80 Weight last 48 hrs Weight 76.657 kg Physical Exam Const: COMMON NORMALS: no acute distress and patient oriented x3 HENMT: COMMON NORMALS: normocephalic HEAD & SCALP: normocephalic Neck/C-Spine: COMMON NORMALS: no JVD Resp: COMMON NORMALS: normal respiratory effort, No retractions and No use of accessory muscles AUSCULTATION: crackles Cardio: COMMON NORMALS: no JVD, regular rate, regular rhythm, S1 normal heart sound present and S2 normal heart sound present RATE: regular rate RHYTHM: regular rhythm HEART SOUNDS: S1 normal heart sound present and S2 normal heart sound present GI: COMMON NORMALS: Normal to inspection, nondistended, normoactive bowel sounds present, Soft to palpation, non-tender, No hepatosplenomegaly present, no masses and no bruits PALPATION: Yes Soft to palpation and Yes No hepatosplenomegaly present Extremity: COMMON NORMALS: capillary refill normal, no clubbing, cyanosis or edema, no calf tenderness and no pedal edema Neuro: COMMON NORMALS: patient oriented x3 Psych: COMMON NORMALS: mental status grossly normal Data : 07/17/20 04:10 07/17/20 04:10 A&P Assessment and plan (1) CHF exacerbation: -CT angiogram showing pulmonary edema, bilateral pleural effusions -BNP 1661 -CT angiogram did show pericardial effusion - LV systolic function is borderline reduced. LVEF is 45 to 50%. Regional wall motion abnormalities cannot be assessed because of atrial fibrillation. Diastolic function cannot be assessed because of atrial fibrillation. Mild mitral regurgitation is present. Mild aortic stenosis is noted. There is a small to moderate sized pericardial effusion. No echocardiographic signs of tamponade. Plan: -Admit to cardiac stepdown unit -Lasix 40 mg IV twice daily -Potassium replacement -Daily I's and O's -Fluid restrictions 1500 cc Status: Acute Qualifiers: Heart failure type: unspecified Qualified Code(s): I50.9 - Heart failure, unspecified (2) Pulmonary edema: Status: Acute Qualifiers: Chronicity: acute Qualified Code(s): J81.0 - Acute pulmonary edema (3) Atrial flutter: -Continue Xarelto -A. fib in the 90s, start metoprolol 12.5 twice daily Status: Acute (4) Hyperlipidemia: Continue statin Status: Acute (5) Essential hypertension: Continue amlodipine Status: Acute (6) Hypothyroidism: Continue levothyroxine Status: Inactive (7) NSTEMI (non-ST elevated myocardial infarction): -Baseline troponin 66 - likely related to CHF exacerbation, cannot rule out underlying CAD -No chest pain complaints -Cardiac stress test on 07/02/2020 showed a EF of 44%, tid 1.2, no significant obstructive CAD -Continue aspirin, statin, metoprolol, Xarelto as above Status: Acute Attestations Medical Necessity Statement*: Patient requires hospitalization for CHF exacerbation Coding Level of Care Code Acute Welding Machine Operator Helper Gas for [facility] Fwd Diagnoses CHF exacerbation I50.9 Heart failure type: unspecified Pulmonary edema J81.0 Chronicity: acute Atrial flutter I48.92 Hyperlipidemia E78.5 Essential hypertension I10 Hypothyroidism E03.9 NSTEMI (non-ST elevated myocardial infarction) I21.4
[2020-07-17] MEDS: rivaroxaban 10 mg Tablet 20 MG PO (20:05)
[2020-07-17] MEDS: finasteride 5 mg Tablet PO (20:05)
[2020-07-17] MEDS: pantoprazole DR 40 mg Tablet PO (20:06)
[2020-07-17] MEDS: tamsulosin 0.4 mg Capsule PO (20:06)
[2020-07-17] MEDS: atorvastatin 40 mg Tablet 80 MG PO (20:06)
[2020-07-17] MEDS: amlodipine 5 mg Tablet PO (20:06)
--- NOTE | 2020-07-17 20:12 | PC.NURSE ---
Report received from TARSHA Biswas. Patient resting in bed. Denies pain or needs at this time. Assessment completed as documented. Medications administered. Discussed plan for night to include timing of next Lasix dose. Patient expressed complete understanding. No distress observed.
[2020-07-18] VITALS: BP 111/50; PULSE 85; RESP 17; TEMP 36.8; O2SAT 90
[2020-07-18] MEDS: FUROsemide 10 mg/mL SDV 4mL 40 MG IVP ×2 (03:49→10:06)
[2020-07-18 04:00] VITALS: BP 110/71; PULSE 73; RESP 23; TEMP 36.6; O2SAT 90
[2020-07-18 04:40] LABS: Basophils # 0.1 10^3/uL (0.0-0.1); Basophils % 0.6 %; Eosinophils # 0.1 10^3/uL (0.0-0.8); Eosinophils % 0.8 %; Hematocrit 38.1 % (42.0-52.0); Hemoglobin 12.6 g/dL (11.7-16.6); Lymphocytes # 2.5 10^3/uL (0.8-4.8); Lymphocytes % 29.5 %; Mean Corpuscular HGB Conc 33.1 g/dL (30.0-36.0); Mean Corpuscular Hemoglobin 27.7 pg (28.0-34.0); Mean Corpuscular Volume 83.7 fL (80-94); Mean Platelet Volume 10.4 fL (7.4-10.4); Monocytes # 0.7 10^3/uL (0.2-0.9); Monocytes % 7.8 %; Neutrophils # 5.12 10^3/uL (1.8-7.7); Neutrophils % 60.9 %; Nucleated Red Blood Cells % 0 %; Platelet Count 198 10^3/cmm (130-400); Red Blood Count 4.55 10^6/uL (4.1-5.3); Red Cell Distribution Width 15.9 % (12.1-15.1); White Blood Count 8.4 10^3/uL (4.0-10.0)
[2020-07-18 04:52] LABS: Alanine Aminotransferase 11 U/L (0-41); Albumin Level 3.6 g/dL (3.5-5.2); Alkaline Phosphatase 103 IU/L (40-130); Anion Gap 11.7 (5-19); Aspartate Amino Transferase 19 U/L (0-40); Blood Urea Nitrogen 26 mg/dL (8-23); Carbon Dioxide 26 mmol/L (22-29); Chloride 103 mmol/L (98-107); Globulin 2.9 g/dL (1.3-4.6); Glucose 115 mg/dL (65-115); Magnesium 1.7 mg/dL (1.7-2.3); Osmolality Calculated 290 mOsm/kg (285-295); Phosphorus 3.6 mg/dL (2.5-4.5); Potassium 3.7 mmol/L (3.5-5.1); Sodium 137 mmol/L (136-145); Total Bilirubin 1.5 mg/dL (0.15-1.2); Total Protein 6.5 g/dL (6.6-8.7)
[2020-07-18] MEDS: metoprolol tartrate 25 mg Tablet 12.5 MG PO (05:09)
[2020-07-18 06:00] VITALS: PULSE 69
[2020-07-18 06:27] LABS: NT Pro B Type Natriuretic Pept 758 pg/mL (0-450)
[2020-07-18 08:00] VITALS: BP 101/61; PULSE 71; RESP 18; TEMP 36.5; O2SAT 90
[2020-07-18] MEDS: potassium chloride ER 20 mEq Tablet PO (08:29)
[2020-07-18] MEDS: multivitamin therapeutic Tablet 1 TAB PO (08:29)
[2020-07-18] MEDS: levothyroxine 50 mcg Tablet PO (08:29)
[2020-07-18] MEDS: cilostazol 100 mg Tablet PO (08:29)
[2020-07-18] MEDS: aspirin 81 mg EC Tablet PO (08:29)
[2020-07-18] MEDS: metOLazone 5 MG Tablet PO (09:01)
--- NOTE | 2020-07-18 10:16 | PM.DCS ---
Discharge Providers Date of Admission: 07/16/20 16:21 Date of Discharge: July 18, 2020 Attending Provider at Admission: Antoine Soto MD Attending Provider at Discharge: Antoine Soto MD Primary Care Provider: MARISELA Garrido Diagnoses at Discharge Discharge Diagnosis (1) CHF exacerbation: Status: Acute Qualifiers: Heart failure type: unspecified Qualified Code(s): I50.9 - Heart failure, unspecified (2) Pulmonary edema: Status: Acute Qualifiers: Chronicity: acute Qualified Code(s): J81.0 - Acute pulmonary edema (3) Atrial flutter: Status: Acute (4) Hyperlipidemia: Status: Acute (5) Essential hypertension: Status: Acute (6) Hypothyroidism: Status: Inactive (7) NSTEMI (non-ST elevated myocardial infarction): Status: Acute Reason for Visit Reason for Visit: phy ref/heart issues Hospital Course Hospital Course Lisa Soler is a 80 year old male with a past medical history of hypertension, hyperlipidemia, BPH, hypothyroidism, abdominal aortic aneurysm repair, history of extensive peripheral vascular disease status post multiple thrombectomies and grafting, former smoker, recent diagnosis of atrial fibrillation placed on Xarelto, recent diagnosis of heart failure placed on Lasix, recent negative stress test, who presents to [facility] due to shortness of breath. Patient was admitted to [facility] for systolic and diastolic CHF exacerbation, CT angiogram showed pulmonary edema, bilateral pleural effusions, BNP 1661, echocardiogram showed borderline reduced ejection fraction of 45 to 50%, patient was diuresed as inpatient, diuresed over 3 L, patient clinically improved, on room air, ambulating without significant symptomatology. Patient has been discharged on Lasix 40 mg twice daily, potassium 20 mg twice daily, with close follow-up with JENNIFER hollins on Tuesday for a CMP check creatinine and potassium. Patient was advised that if he were to gain more than 2 to 3 pounds over a 1 to 2-day, Take another 40 mg of Lasix. BNP on discharge 758. On admission patient was found to have a pericardial effusion, echocardiogram showed mild to moderate pericardial effusion, I went over this with Dr. North, we clinically felt that this was not significant, especially as patient has clinically improved with diuretic therapy, no hemodynamic compromise, no tamponade. Patient will be discharged with close follow with Dr. North as outpatient. In addition patient's EF has been reduced to 45 to 50%, I went over this with Dr. North, who sees patient as outpatient, will see patient in clinic in 2 to 3 weeks. Patient also had NSTEMI during his hospital admission, baseline troponin 64, 6-hour 67.62, no significant delta. Cardiac stress test on 07/02/2020 showed an EF of 44%, tid 1.2, no significant obstructive CAD, likely type II NSTEMI related to supply demand ischemia related to CHF as above, however cannot rule out underlying cardiac etiology, patient had no chest pain complaints, is on aspirin, statin, metoprolol, Xarelto. Patient has been discharged with close follow-up with Dr. North as outpatient, if he were to have chest pain come back to the emergency room. Physical Exam Const: COMMON NORMALS: no acute distress and patient oriented x3 HENMT: COMMON NORMALS: normocephalic HEAD & SCALP: normocephalic Neck/C-Spine: COMMON NORMALS: no JVD Resp: COMMON NORMALS: normal respiratory effort, No retractions, No use of accessory muscles and clear to auscultation bilaterally AUSCULTATION: clear to auscultation bilaterally Cardio: COMMON NORMALS: no JVD, regular rate, regular rhythm, S1 normal heart sound present and S2 normal heart sound present RATE: regular rate RHYTHM: regular rhythm HEART SOUNDS: S1 normal heart sound present and S2 normal heart sound present GI: COMMON NORMALS: Normal to inspection, nondistended, normoactive bowel sounds present, Soft to palpation, non-tender, No hepatosplenomegaly present, no masses and no bruits PALPATION: Yes Soft to palpation and Yes No hepatosplenomegaly present Extremity: COMMON NORMALS: capillary refill normal, no clubbing, cyanosis or edema, no calf tenderness and no pedal edema Neuro: COMMON NORMALS: patient oriented x3 Psych: COMMON NORMALS: mental status grossly normal Discharge Data Data Completed and Pending: Completed Studies During Hospitalization Category Date Time Status CT angio chest PE protcl [id number] Stat Cat Scan 07/16/20 12:10 Completed XR chest 1V sophie ble [id number] Stat Exams 07/16/20 11:30 Completed CV echo complete* [id number] Urgent Ultrasound 07/16/20 14:29 Completed Pending at discharge Category Date Time Status Complete Blood Co unt w/Auto AM LABS Lab 07/19/20 04:00 Ordered Comprehensive Met abolic Panel AM LA BS Lab 07/19/20 04:00 Ordered Magnesium AM LABS Lab 07/19/20 04:00 Ordered NT Pro B Type Shanita riuretic Pept QAM Lab 07/18/20 03:30 Results NT Pro B Type Shanita riuretic Pept QAM Lab 07/19/20 06:00 Ordered Phosphorus AM LAB S Lab 07/19/20 04:00 Ordered Procalcitonin AM LABS Lab 07/18/20 03:30 Results Procalcitonin AM LABS Lab 07/19/20 04:00 Ordered Labs from last 24 hours 07/18/20 07/18/20 07/18/20 03:30 03:30 03:30 WBC 8.4 RBC 4.55 Hgb 12.6 Hct 38.1 L MCV 83.7 MCH 27.7 L MCHC 33.1 RDW 15.9 H Plt Count 198 MPV 10.4 Neut % (Auto) 60.9 Lymph % (Auto) 29.5 Dawes % (Auto) 7.8 Eos % (Auto) 0.8 Baso % (Auto) 0.6 Neut # (Auto) 5.12 Lymph # (Auto) 2.5 Dawes # (Auto) 0.7 Eos # (Auto) 0.1 Baso # (Auto) 0.1 Nucleated RBC % (a uto) 0 Nucleated RBCs # 0.0 Sodium 137 Potassium 3.7 Chloride 103 Carbon Dioxide 26 Anion Gap 11.7 BUN 26 H Creatinine 0.9 GFR Calculation Not Reportable Glucose 115 Calculated Osmolal ity 290 Calcium 9.0 Phosphorus 3.6 Magnesium 1.7 Total Bilirubin 1.5 H AST 19 ALT 11 Alkaline Phosphata se 103 NT-Pro-B Natriuret Pep 758 H Total Protein 6.5 L Albumin 3.6 Globulin 2.9 Procalcitonin Pending Vitals: Last Vital Signs Temp 97.7 F 07/18/20 08:00 Pulse 71 07/18/20 08:00 Resp 18 07/18/20 08:00 BP 101/61 07/18/20 08:00 Pulse Ox 90 07/18/20 08:00 Discharge Plan Discharge Patient Disposition: Home Condition: Stable Prescriptions: New Klor-Con M20 20 mEq Tablet,Er Particles/Crystals 20 meq PO Q12H 30 Days Qty: 60 RF: 0 pantoprazole 40 mg Tablet,Delayed Release (Dr/Ec) 40 mg PO BEDTIME 30 Days Qty: 30 RF: 0 metoprolol tartrate 25 mg Tablet 12.5 mg PO Q12H 30 Days Qty: 30 RF: 0 furosemide 40 mg tablet 40 mg PO BID 30 Days Qty: 60 RF: 0 Continued levothyroxine 50 mcg capsule 50 mcg PO DAILY RF: 0 aspirin [Adult Aspirin Regimen] 81 mg tablet,delayed release (DR/EC) 81 mg PO DAILY RF: 0 tamsulosin 0.4 mg capsule 0.4 mg PO DAILY RF: 0 finasteride [Proscar] 5 mg tablet 5 mg PO DAILY Qty: 90 RF: 1 Xarelto 20 mg tablet 20 mg PO DAILY Qty: 90 RF: 1 multivitamin Tablet 1 tab PO DAILY RF: 0 PreserVision AREDS-2 [id number] Capsule 1 tab PO BID RF: 0 cilostazol 100 mg tablet 100 mg PO BID RF: 0 atorvastatin 80 mg tablet 80 mg PO DAILY RF: 0 Discontinued furosemide 40 mg tablet 40 mg PO DAILY Qty: 10 RF: 0 amlodipine 5 mg tablet 5 mg PO DAILY Qty: 90 RF: 3 Discharge Orders: Discharge Order (Routine); Ordered 07/18/20 Ordered By: Antoine Soto Other Ambulatory Orders: Comprehensive Metabolic Panel (Routine) Timeframe: 20200721 Facility: [facility] - Location: Lab - Main Lab Ordered By: Antoine Soto Referrals: JENNIFER Hollins, MARISELA [Primary Care Provider] - Ronny North M.D [Physician] - 2 weeks Discharge Diet: Cardiac Discharge Activity: Resume usual activity Patient Instructions: Metoprolol (By mouth), Furosemide (By mouth), Potassium Chloride (By mouth), Pantoprazole (By mouth), Myocardial Infarction (DC), Heart Failure (DC), Pulmonary Edema (DC), Post Angiogram Home Care Instructions Activity Restrictions/Additional Instructions: -Take Lasix 40 mg twice daily -Weight yourself daily -If you gain more than 2 to 3 pounds take an extra Lasix 40 mg -Take potassium 20 mg twice daily -Recheck potassium and creatinine on Tuesday -Follow-up with JENNIFER hollins on Tuesday -Follow-up with cardiology in 2 to 3 weeks -If you have chest pain or worsening shortness of breath please come to the emergency room -Please restrict fluid intake to less than 1500 mL/day Discharge Attestations Time Spent in Discharge Care*: less than 30 min Quality Metrics Clinical Quality Measures During this hospital stay, did patient experience: None Coding Level of Care Code Acute [employer] Diagnoses CHF exacerbation I50.9 Heart failure type: unspecified Pulmonary edema J81.0 Chronicity: acute Atrial flutter I48.92 Hyperlipidemia E78.5 Essential hypertension I10 Hypothyroidism E03.9 NSTEMI (non-ST elevated myocardial infarction) I21.4
[2020-07-18 10:30] LABS: Procalcitonin 0.02 ng/mL (0-0.5)
[2020-07-18 11:30] VITALS: BP 117/64; PULSE 76; RESP 16; TEMP 37; O2SAT 95
[2020-07-18 11:37] VITALS: BP 117/64; PULSE 76; RESP 16; TEMP 37; O2SAT 95
--- NOTE | 2020-07-18 15:07 | PC.NURSE ---
discharge instructions given. all questions answered at this time. iv removed, tip intact. patient escorted to door in wheelchair where his private vehicle picked him up.
== END 2020-07-18 15:07 | disposition home or self-care (01) | DRG 281 ==
LOC: ER 17:05 → CSU 17:18
PROVIDERS: Emergency Medicine; Admitting Provider Family Medicine; Emergency Provider Family Medicine; PCP Nurse Practitioner Family; Visit Provider Family Medicine
DX: I11.0 Hypertensive heart disease with heart failure (principal); I21.A1 Myocardial infarction type 2; I48.92 Unspecified atrial flutter; I50.41 Acute combined systolic (congestive) and diastolic (congestive) heart failure; E78.5 Hyperlipidemia, unspecified; N40.0 Benign prostatic hyperplasia without lower urinary tract symptoms; E03.9 Hypothyroidism, unspecified; I73.9 Peripheral vascular disease, unspecified; Z87.891 Personal history of nicotine dependence; I48.91 Unspecified atrial fibrillation; Z79.01 Long term (current) use of anticoagulants; I08.0 Rheumatic disorders of both mitral and aortic valves; Z79.82 Long term (current) use of aspirin
CPT/HCPCS: 12345; 36415; 71045; 71275; 80053; 80061; 83036; 83605; 83735; 83880; 84100; 84145; 84484; 85025; 93005; 93306; 94664; 96375; 97161; 97165; 99282; J1940; Q9967

== ENCOUNTER → 2020-07-21 10:11 | Outpatient (BNVA) | payer MEDICARE, SELFPAY | PROVIDERS: PCP Nurse Practitioner Family; Visit Provider Family Medicine | DX: I48.92 Unspecified atrial flutter (principal); I50.9 Heart failure, unspecified; J81.1 Chronic pulmonary edema; I10 Essential (primary) hypertension | CPT/HCPCS: 80053 ==

== ENCOUNTER → 2020-07-23 10:50 | Outpatient (BNVA) | payer MEDICARE, SELFPAY | PROVIDERS: PCP Nurse Practitioner Family; Visit Provider Family Medicine | DX: I10 Essential (primary) hypertension (principal); R06.02 Shortness of breath; I50.9 Heart failure, unspecified; I48.92 Unspecified atrial flutter; E78.5 Hyperlipidemia, unspecified; R63.4 Abnormal weight loss | CPT/HCPCS: 80053 ==

== ENCOUNTER → 2020-07-25 12:08 | Outpatient (BNVA) | payer MEDICARE, SELFPAY | PROVIDERS: PCP Nurse Practitioner Family; Visit Provider Nurse Practitioner Family | DX: E87.6 Hypokalemia (principal); R31.9 Hematuria, unspecified | CPT/HCPCS: 80053; 81003; 85025; 87086 ==

== ENCOUNTER 2020-08-01 13:06 | Outpatient (CLI) | payer MEDICARE, SELFPAY ==
[2020-08-01] MEDS: iohexol 300 mg/mL 100 mL Btl IV (14:08)
--- NOTE | 2020-08-01 14:30 | CT_ITS ---
WS: [id number] CT ABDOMEN AND PELVIS WITH AND WITHOUT CONTRAST HISTORY: Z98.890 - Other specified postprocedural states, hematuria. TECHNIQUE: Unenhanced 5 mm axial imaging first performed through the abdomen. Post contrast imaging t hrough the abdomen and pelvis. Oral contrast has been provided. Sagittal and coronal reformats are s ubmitted. All CT scans at [facility] use at least one of these dose optimization techniqu es: automated exposure control; mA and/or kV adjustment per patient size (includes targeted exams whe re dose is matched to clinical indication); or iterative reconstruction. CONTRAST: Omnipaque 300; 95 mL IV. DLP: 936.27 mGy.cm COMPARISON: 07/16/2020 Chronic interstitial fibrotic changes at the lung bases. Previously described small bilateral pleural effusions have resolved. Small pericardial effusion persists but slightly improved. Heart is enlarge d. Liver, gallbladder, spleen, pancreas and and kidneys are unchanged. Nonobstructing calcifications or masses are calcifications centrally within each kidney. Pancreas is atrophied. Aorta: Heavy atherosclerotic plaque throughout the aorta. Maximum transverse diameter of 2.4 cm. Ther e is heavy plaque at the origins of the mesenteric and celiac axis and renal arteries. Diffuse marked constipation. No ischemic changes. No obstruction is apparent. The appendix is normal. Marked enlargement of prostate gland measuring 4.6 x 5.2 x 6.1 cm encroaching into the bladder and de forming the bladder. Degenerative disc disease and facet arthritis. LEFT convex curvature lumbar spine. CT/CT abdomen pelvis wo/w [id number] IMPRESSION: 1. Extensive atherosclerotic plaque with mild ectasia throughout the aorta and proximal mesenteric arteries. Maximum diameter of 2.4 cm. 2. Marked enlargement of the prostate gland encroaching into the urinary bladd er. 3. No renal mass or obstruction is identified. 4. Resolved bilateral pleural effusions. Improved but persistent small pericar dial effusion. 5. Marked constipation.
== END 2020-08-01 13:07 | disposition home or self-care (01) ==
LOC: RAD 13:10
PROVIDERS: PCP Nurse Practitioner Family; Visit Provider Nurse Practitioner Family
DX: Z98.890 Other specified postprocedural states (principal); R31.9 Hematuria, unspecified; I77.819 Aortic ectasia, unspecified site; N40.0 Benign prostatic hyperplasia without lower urinary tract symptoms; K59.00 Constipation, unspecified; J90 Pleural effusion, not elsewhere classified
CPT/HCPCS: 74178; 81003; 87086

== ENCOUNTER → 2020-08-29 10:32 | Outpatient (BNVA) | payer MEDICARE, SELFPAY | PROVIDERS: PCP Nurse Practitioner Family; Visit Provider Urology | DX: N02.9 Recurrent and persistent hematuria with unspecified morphologic changes (principal); N40.0 Benign prostatic hyperplasia without lower urinary tract symptoms | CPT/HCPCS: 81003 ==

== ENCOUNTER → 2020-11-10 14:30 | Outpatient (BNVA) | payer MEDICARE, SELFPAY | PROVIDERS: PCP Nurse Practitioner Family; Visit Provider Internal Medicine | DX: Z86.010 Personal history of colon polyps (principal); Z01.812 Encounter for preprocedural laboratory examination; Z20.822 Contact with and (suspected) exposure to COVID-19 | CPT/HCPCS: 87635 ==

== ENCOUNTER 2020-11-17 06:58 | Day surgery (SDC) | payer MEDICARE, SELFPAY ==
[2020-11-14 10:35] VITALS: BMI 25.8
--- NOTE | 2020-11-17 07:31 | ANES.PREANE2 ---
Pre-Anesthetic Assessment Pre-Anesthetic Assessment: Height/Weight: Height 1.7 m Weight 74.843 kg Preop Diagnosis: polyps Proposed Procedure: Operation Date: 11/17/20 08:30 Proposed Procedures p Colonoscopy G0105 Z86.010(Not Applicable) - Herman Cui MD Familial anesthetic complications: None Last intake: > 8 hgrs Social: Social History: Tobacco Comment: chews Exam: Pre-Anes Outpt Exam: alert, oriented x 3, clear to auscultation bilaterally and regular rate & rhythm Airway: Cervical ROM: WNL MP: 3 Dentition: False and Partials CV/HEM: CV/HEM: Afib, CHF and HTN Comments: AAA repair Able to achieve 4 METS w/out sob or ches tpain Metabolic: Metabolic: Thyroid Anesthetic Plan: ASA status: 3 Anesthesia: MAC Risk of > 500 ml blood loss (7ml/kg in children): No PFSH Anesthesia PFSH: Medical History Anticoagulated Atrial flutter BPH (benign prostatic hyperplasia) Encounter for wellness examination Essential hypertension Gross hematuria Hematuria Hyperlipidemia Hypokalemia Hypothyroidism Surgical History H/O coronary artery bypass surgery H/O transurethral resection of prostate History of AAA (abdominal aortic aneurysm) repair Family History Mother , AT AGE 83 Diabetes CAD (coronary artery disease) Father , AT AGE 88 Stroke Social History Smoking and tobacco status: current every day smoker smokeless tobacco Second hand smoke exposure: No Smoking risk assessment/counseling performed?: No Alcohol intake: never Desire information about alcohol rehabilitation?: No Counseling given: No Desire information about substance/drug rehabilitation?: No Counseling given: No Marital status: / Current occupational status: retired History of recent travel: No Data Anesthesia Cardiac Studies: Cardiac Event Monitor 06/10/20
--- NOTE | 2020-11-17 08:30 | W.PM.OPSUD ---
Surgery/Procedure H&P Update DATE OF PROCEDURE: November 17, 2020 DATE H&P PERFORMED: 11/10/20 PREOP DIAGNOSIS: t PLANNED PROCEDURE: Operation Date: 11/17/20 08:30 Proposed Procedures p Colonoscopy G0105 Z86.010(Not Applicable) - Herman Cui MD
[2020-11-17 08:32] VITALS: PULSE 63; RESP 16; TEMP 35.8; O2SAT 97
[2020-11-17] MEDS: sodium chloride 0.9% 1,000 ML 30 ML IV (08:53)
[2020-11-17 09:41] VITALS: BP 79/55; PULSE 90; RESP 16; TEMP 36.1; O2SAT 96
[2020-11-17 09:59] VITALS: BP 100/60; PULSE 85; RESP 18; O2SAT 99
--- NOTE | 2020-11-17 10:00 | PC.NURSE ---
blood pressure taken manually
[2020-11-17 10:25] VITALS: BP 127/84; PULSE 83; RESP 18; O2SAT 98
--- NOTE | 2020-11-17 17:44 | ANE.PACU2 ---
Inpatient post-anesthesia follow up: Airway intact: Yes Vital signs: Temperature 97 F Pulse Rate 83 Respiratory Rate 18 Blood Pressure 127/84 Pulse Oximetry 98 Oxygen Delivery Me thod Room Air Oxygen Flow Rate Fraction of Inspir ed Oxygen Hydration adequate: Yes Nausea and vomiting: No Pain level: 2 Mental status: Baseline
== END 2020-11-17 10:41 | disposition home or self-care (01) ==
PROVIDERS: PCP Nurse Practitioner Family; Visit Provider Internal Medicine
PROC: 0DJD8ZZ Inspection of Lower Intestinal Tract, Via Natural or Artificial Opening Endoscopic (ICD-10-PCS; CPT 45378; principal; 2020-11-17 08:30)
DX: Z86.010 Personal history of colon polyps (principal); K57.30 Diverticulosis of large intestine without perforation or abscess without bleeding; D12.4 Benign neoplasm of descending colon; D12.3 Benign neoplasm of transverse colon; F17.220 Nicotine dependence, chewing tobacco, uncomplicated; I48.91 Unspecified atrial fibrillation; I11.0 Hypertensive heart disease with heart failure; I50.9 Heart failure, unspecified; N40.0 Benign prostatic hyperplasia without lower urinary tract symptoms; E78.5 Hyperlipidemia, unspecified; E03.9 Hypothyroidism, unspecified
CPT/HCPCS: 45385; 88305; 96360; 96361; J2704; J3490; J7030

== ENCOUNTER → 2021-08-04 10:20 | Outpatient (BNVA) | payer MEDICARE, SELFPAY | PROVIDERS: PCP Nurse Practitioner Family; Visit Provider Family Medicine | DX: N40.0 Benign prostatic hyperplasia without lower urinary tract symptoms (principal); E78.5 Hyperlipidemia, unspecified; I10 Essential (primary) hypertension; I50.9 Heart failure, unspecified | CPT/HCPCS: 80053; 80061; 81003; 82306; 83036; 84443; 85025; G0103 ==

== ENCOUNTER → 2022-03-17 10:06 | Outpatient (BNVA) | payer MEDICARE, SELFPAY | PROVIDERS: PCP Nurse Practitioner Family; Visit Provider Family Medicine | DX: S46.219A Strain of muscle, fascia and tendon of other parts of biceps, unspecified arm, initial encounter (principal); X58.XXXA Exposure to other specified factors, initial encounter | CPT/HCPCS: 73030; 73060 ==

== ENCOUNTER → 2022-08-10 11:13 | Outpatient (BNVA) | payer MEDICARE, SELFPAY | PROVIDERS: PCP Nurse Practitioner Family; Visit Provider Nurse Practitioner | DX: I10 Essential (primary) hypertension (principal); E55.9 Vitamin D deficiency, unspecified; Z12.5 Encounter for screening for malignant neoplasm of prostate; Z51.81 Encounter for therapeutic drug level monitoring | CPT/HCPCS: 80053; 80061; 82306; 84443; 85025; G0103 ==

== ENCOUNTER → 2023-05-25 10:27 | Outpatient (BNVA) | payer MEDICARE, SELFPAY | PROVIDERS: PCP Nurse Practitioner Family; Visit Provider Family Medicine | DX: R31.9 Hematuria, unspecified (principal) | CPT/HCPCS: 74018 ==

== ENCOUNTER → 2023-05-26 14:06 | Outpatient (BNVA) | payer MEDICARE, SELFPAY | PROVIDERS: PCP Nurse Practitioner Family; Visit Provider Nurse Practitioner Family | DX: R31.9 Hematuria, unspecified (principal) | CPT/HCPCS: 81000 ==

== ENCOUNTER → 2023-06-08 15:36 | Outpatient (BNVA) | payer MEDICARE, SELFPAY | PROVIDERS: PCP Nurse Practitioner Family; Visit Provider Nurse Practitioner Family | DX: R31.9 Hematuria, unspecified (principal) | CPT/HCPCS: 81000 ==

== ENCOUNTER → 2023-06-20 10:57 | Outpatient (BNVA) | payer MEDICARE, SELFPAY | PROVIDERS: PCP Nurse Practitioner Family; Visit Provider Nurse Practitioner Family | DX: R50.9 Fever, unspecified (principal); I48.91 Unspecified atrial fibrillation; J06.9 Acute upper respiratory infection, unspecified | CPT/HCPCS: 71046; 87400; 87426 ==

== ENCOUNTER 2023-06-30 10:58 | Emergency (ER) | payer MEDICARE, SELFPAY ==
--- NOTE | 2023-06-30 11:00 | XR_ITS ---
WS: [id number] Exam: XR chest 1V portable [id number] Date/Time of Exam: 06/30/2023 11:00 AM Reason For Exam: dyspnea Comparison 06/20/2023. Persistent RIGHT upper lobe infiltrate noted. Superimposed chronic interstitial changes in both lungs . The lungs are hyperinflated. Unremarkable cardiomediastinal silhouette. No pleural effusions. Bony structures are intact. IMPRESSION: 1. RIGHT upper lobe infiltrate unchanged. 2. Superimposed chronic interstitial changes noted bilaterally. Pulmonary hyperinflation.
[2023-06-30 11:06] VITALS: BP 112/65; PULSE 110; RESP 16; TEMP 36.9; O2SAT 92; BMI 25.7
[2023-06-30 11:54] LABS: Basophils % 0.4 %; Eosinophils % 0.1 %; Hematocrit 43.4 % (37-53); Lymphocytes # 1.5 10^3/uL (0.8-4.8); Mean Corpuscular HGB Conc 32.7 g/dL (30-55); Mean Corpuscular Hemoglobin 27.4 pg (27-33); Mean Corpuscular Volume 83.8 fl (82-101); Mean Platelet Volume 9.8 fL (7.4-10.4); Monocytes # 0.9 10^3/uL (0.2-0.9); Monocytes % 8.8 %; Neutrophils % 74.3 %; Nucleated Red Blood Cells % 0 %; Platelet Count 259 10^3/cmm (157-399); Red Blood Count 5.18 10^6/uL (3.85-5.65); Red Cell Distribution Width 14.7 % (12.1-15.1); White Blood Count 10.64 10^3/uL (3.29-11.43)
[2023-06-30 12:22] LABS: Alanine Aminotransferase 16 U/L (0-41); Albumin Level 3.5 g/dL (3.5-5.2); Alkaline Phosphatase 149 U/L (40-130); Anion Gap 19.8 (5-19); Aspartate Amino Transferase 34 U/L (0-40); Blood Urea Nitrogen 20 mg/dL (8-23); Calcium 9.7 mg/dL (8.5-10.5); Carbon Dioxide 21 mmol/L (22-29); Chloride 99 mmol/L (98-107); Glucose 106 mg/dL (65-115); NT Pro B Type Natriuretic Pept 260 pg/mL (0-450); Osmolality Calculated 285 mOsm/kg (285-295); Potassium 3.8 mmol/L (3.5-5.1); Sodium 136 mmol/L (136-145); Total Bilirubin 1.1 mg/dL (0.15-1.2); Total Protein 7.5 g/dL (6.6-8.7)
--- NOTE | 2023-06-30 12:54 | W.ED.SOB ---
HPI - SOB/Dyspnea General: Chief Complaint: Shortness of Breath/Dyspnea Stated Complaint: SOB Time Seen by Provider: 06/30/23 12:35 Source: patient and family (Daughter) Mode of arrival: ambulatory Limitations: no limitations History of Present Illness: HPI Narrative: Patient is an 83-year-old male with past medical history of A-fib, HLD, and HTN who presents to the emergency department accompanied by daughter due to shortness of breath onset 2 weeks. Patient states he was seen at [facility] at the beginning of June where he was diagnosed with influenza and potential bacterial pneumonia for which she was treated with Levaquin. He states his symptoms of shortness of breath began initially on Halloween, associated with some pleuritic chest pain upon deep breathing on the left side. He says that this pain has continued and his breathing has continually gotten worse since being diagnosed with the flu. He reports a history of congestive heart failure, but states he does not have any recent weight gain or increased fluid burden to his lower extremities. He is not on home O2, but states that his last recorded oxygen at [place] today was 88% on room air. He denies any history of COPD or asthma. His breathing difficulty is worsened by lying flat and with exertion, somewhat relieved by rest. He states that he still has a cough, productive of clear sputum. He has since finished his prescribed regimen of Levaquin. He denies any fever, chills, diaphoresis, or any other symptoms. MD elicited complaint: shortness of breath Pertinent past history: congestive heart failure and pneumonia Onset (ago): week(s) Context: recent illness Timing: constant and progressively worsening Exacerbating factors: lying flat and exertion Relieving factors: rest Associated symptoms: Reports chest pain (Pleuritic); Deny abdominal pain, fever(s), lightheadedness, nausea, palpitations, syncope or vomiting Review of Systems Const: Denies: fever(s), chills, change in weight or fatigue Card: Reports: chest pain (Pleuritic); Denies: palpitations, lightheadedness or syncope Resp: Reports: dyspnea and productive cough (Clear) GI: Denies: abdominal pain, nausea, vomiting or diarrhea : Denies: flank pain, difficulty urinating, dysuria, urinary frequency or urinary urgency Musc: Denies: neck pain or back pain Skin/Breast: Denies: rash Neuro: Denies: headache(s), numbness in extremities or weakness in extremities PFSH ED PFSH: Medical History (Updated 07/08/23 @ 00:00 by ALEJANDRO Steele) Anticoagulated Atrial fibrillation Atrial flutter Biceps tendon rupture BPH (benign prostatic hyperplasia) Cardiac arrhythmia Chronic sinusitis Congestive heart failure Encounter for wellness examination Essential hypertension Gross hematuria Hematuria Hyperlipidemia Hypokalemia Hypothyroidism Influenza B Upper respiratory infection Surgical History H/O coronary artery bypass surgery H/O transurethral resection of prostate History of AAA (abdominal aortic aneurysm) repair Family History Mother , AT AGE 83 Diabetes CAD (coronary artery disease) Father , AT AGE 88 Stroke Social History Smoking and tobacco/nicotine status: former use of tobacco/nicotine Second hand smoke exposure: No Alcohol intake: never Substance/Drug Use: never Marital status: / Current occupational status: retired Physical Exam Const: COMMON NORMALS: no acute distress GENERAL APPEARANCE: cooperative and comfortable ORIENTATION/CONSCIOUSNESS: Yes awake, Yes oriented to person, Yes oriented to place and Yes oriented to time HENMT: COMMON NORMALS: normocephalic, atraumatic and hearing grossly normal bilaterally HEAD & SCALP: normocephalic and atraumatic THROAT: posterior oropharynx normal Eye: COMMON NORMALS: Equal, round and reactive pupils present, EOMs intact bilaterally and conjunctivae normal CONJUNCTIVA: Yes conjunctivae normal PUPIL: Yes Equal, round and reactive pupils present Neck/C-Spine: COMMON NORMALS: full ROM and no JVD Chest: COMMONS NORMALS: normal inspection of the chest and normal palpation of entire chest wall CHEST: Yes Symmetrical chest wall rise Resp: COMMON NORMALS: normal respiratory effort, No retractions, No use of accessory muscles and clear to auscultation bilaterally EFFORT & INSPECTION: Yes able to speak in complete sentences, Yes symmetric chest movement and No tachypneic AUSCULTATION: clear to auscultation bilaterally Cardio: COMMON NORMALS: no JVD, regular rate, No murmurs present (Cardio) and Peripheral pulses 2+ throughout RATE: regular rate RHYTHM: abnormal rhythm irregularly irregular PERIPHERAL PULSES: Peripheral pulses 2+ throughout GI: COMMON NORMALS: Soft to palpation and No hepatosplenomegaly present AUSCULTATION: Yes normoactive bowel sounds PALPATION: Yes Soft to palpation, No Tenderness to palpation present (GI), No Guarding due to palpation present (GI) and Yes No hepatosplenomegaly present Extremity: COMMON NORMALS: normal to inspection, capillary refill normal, no clubbing, cyanosis or edema and no calf tenderness OTHER: Trace pitting edema right lower extremity. 2+ edema to left lower extremity, history of arterial surgery for PAD. Neuro: SENSORIUM/ORIENTATION: Yes oriented to person, Yes oriented to place and Yes oriented to time Skin: COMMON NORMALS: no rashes or lesions noted GENERAL SKIN EXAM: no rashes or lesions noted Course Vital Signs: Vital signs: Vital Signs Temperature 98.5 F 06/30/23 11:06 Pulse Rate 91 06/30/23 16:05 Respiratory Rate 18 06/30/23 16:05 Blood Pressure 114/62 06/30/23 16:05 Pulse Oximetry 93 06/30/23 16:05 Oxygen Delivery Me thod Nasal Cannula 06/30/23 16:05 Oxygen Flow Rate 3 06/30/23 16:05 MDM - SOB/Dyspnea Medical Decision Making Labs and imaging reviewed. Lung Patient has persistent pneumonia this been present for some time. Is also concerned about a possible as he will need follow-up with continue his current medications start levofloxacin. Discharged home with oxygen. We will set him up follow-up with Dr. Yuliana coleman if he has further problems. Medical Records I reviewed the patient's medical records. Lab Data I reviewed the patient's lab results. 06/30/23 11:38 06/30/23 11:38 Labs/Radiology: Radiology Impressions Chest CTA 06/30/23 14:34 IMPRESSION: Large right upper lobe masslike consolidation, infectious/inflammatory versus neoplastic with additional pulmonary nodules measuring up to 6 mm as well. Follow-up to resolution will be needed for further characterization. Mediastinal/hilar adenopathy is also present. No evidence of pulmonary embolism. Laboratory Results WBC 10.64 10^3/uL (3.29-11.43) 06/30/23 11:38 RBC 5.18 10^6/uL (3.85-5.65) 06/30/23 11:38 Hgb 14.20 g/dL (11.27-16.99) 06/30/23 11:38 Hct 43.4 % (37-53) 06/30/23 11:38 MCV 83.8 fl (82-101) 06/30/23 11:38 MCH 27.4 pg (27-33) 06/30/23 11:38 MCHC 32.7 g/dL (30-55) 06/30/23 11:38 RDW 14.7 % (12.1-15.1) 06/30/23 11:38 Plt Count 259 10^3/cmm (157-399) 06/30/23 11:38 MPV 9.8 fL (7.4-10.4) 06/30/23 11:38 Neut % (Auto) 74.3 % 06/30/23 11:38 Lymph % (Auto) 14.0 % 06/30/23 11:38 [place] % (Auto) 8.8 % 06/30/23 11:38 Eos % (Auto) 0.1 % 06/30/23 11:38 Baso % (Auto) 0.4 % 06/30/23 11:38 Neut # (Auto) 7.90 10^3/uL (1.8-7.7) H 06/30/23 11:38 Lymph # (Auto) 1.5 10^3/uL (0.8-4.8) 06/30/23 11:38 [place] # (Auto) 0.9 10^3/uL (0.2-0.9) 06/30/23 11:38 Eos # (Auto) 0.0 10^3/uL (0.0-0.8) 06/30/23 11:38 Baso # (Auto) 0.0 10^3/uL (0.0-0.1) 06/30/23 11:38 Nucleated RBC % (auto) 0 % 06/30/23 11:38 Nucleated RBCs # 0.0 /100WBC 06/30/23 11:38 Sodium 136 mmol/L (136-145) 06/30/23 11:38 Potassium 3.8 mmol/L (3.5-5.1) 06/30/23 11:38 Chloride 99 mmol/L (98-107) 06/30/23 11:38 Carbon Dioxide 21 mmol/L (22-29) L 06/30/23 11:38 Anion Gap 19.8 (5-19) H 06/30/23 11:38 BUN 20 mg/dL (8-23) 06/30/23 11:38 Creatinine 1.0 mg/dL (0.7-1.2) 06/30/23 11:38 GFR Calculation Not Reportable 06/30/23 11:38 Glucose 106 mg/dL (65-115) 06/30/23 11:38 Calculated Osmolality 285 mOsm/kg (285-295) 06/30/23 11:38 Calcium 9.7 mg/dL (8.5-10.5) 06/30/23 11:38 Total Bilirubin 1.1 mg/dL (0.15-1.2) 06/30/23 11:38 AST 34 U/L (0-40) 06/30/23 11:38 ALT 16 U/L (0-41) 06/30/23 11:38 Alkaline Phosphatase 149 U/L (40-130) H 06/30/23 11:38 NT-Pro-B Natriuret Pep 260 pg/mL (0-450) 06/30/23 11:38 Total Protein 7.5 g/dL (6.6-8.7) 06/30/23 11:38 Albumin 3.5 g/dL (3.5-5.2) 06/30/23 11:38 Globulin 4.0 g/dL (1.3-4.6) 06/30/23 11:38 All radiology interpretation(s) finalized by discharge Discharge Plan Discharge Patient Disposition: Home Clinical Impression: Mass of upper lobe of right lung, Pneumonia Condition: Stable Prescriptions: No Action furosemide 40 mg tablet See Rx Instructions .ROUTE .COMPLEX Qty: 145 1RF Dose Instruction: TAKE 1 TABLET BY MOUTH IN THE MORNING AND 1/2 (ONE-HALF) IN THE EVENING Rx Instructions: TAKE 1 TABLET BY MOUTH IN THE MORNING AND 1/2 (ONE-HALF) IN THE EVENING levofloxacin 750 mg tablet 750 mg PO DAILY 7 Days Qty: 7 0RF albuterol sulfate 0.63 mg/3 mL solution for nebulization 0.63 mg inhalation Q4H PRN (Reason: shortness of breath or wheezing) Qty: 90 2RF PreserVision AREDS-2 [id number] Capsule 1 tab PO BID acetaminophen 500 mg Tablet 1,000 mg PO QID PRN (Reason: Pain) cilostazol 100 mg tablet 100 mg PO BID potassium chloride 20 mEq tablet,ER particles/crystals 20 meq PO BID tamsulosin 0.4 mg capsule 0.4 mg PO DAILY levothyroxine 50 mcg tablet 50 mcg PO DAILY metoprolol tartrate 25 mg tablet 12.5 mg PO BID Xarelto 20 mg tablet 20 mg PO QPM finasteride 5 mg tablet 5 mg PO DAILY Discharge Orders: Discharge ED (Routine); Ordered 06/30/23 Ordered By: Hubert Reardon Other Ambulatory Orders: DME: Oxygen (DAILY) Timeframe: 20231007 Location: None Selected Ordered By: Hubert Reardon Referrals: Celestino Bermudez FNP [Primary Care Provider] - Discharge Diet: Usual diet Discharge Activity: Increase activity as tolerated Patient Instructions: Opioid Safety, Pain Management Activity Restrictions/Additional Instructions: Thank you for choosing [facility] for your healthcare needs today. Please realize this is an emergency room and that we are providing you with a medical screening exam and this may not be complete and all inclusive of all the testing and or work up that you may need to determine your ailment or severity of your illness. It is very important that you follow up as instructed or that you return to the Emergency Department should you have concerns or if your condition changes or worsens in any way. You are seen today for persistent shortness of breath and productive cough. You are found to need oxygen at discharge home with oxygen at 2 L/min by nasal cannula. It appears you have a persistent pneumonia recommend you start on clindamycin 300 mg 4 times daily for 10 days. There is also concern on the CT of a possible mass in the right upper lobe recommend that you follow-up with Dr. Bridges to further evaluate business initiatives manager will make arrangements for the appointment. Coding Level of Care Code ED Landscape Painter for Elena Rachel
[2023-06-30 12:57] VITALS: BP 124/74; PULSE 94; RESP 18; O2SAT 93
[2023-06-30 13:05] VITALS: BP 172/81; PULSE 78; RESP 18; O2SAT 94
--- NOTE | 2023-06-30 13:37 | PC.PHAR ---
PT USES MARGRET ANTUNEZ FOR XARELTO 20 MG ONLY DUE TO [address] PRICING. 06/30/23
[2023-06-30 13:59] VITALS: BP 124/74; PULSE 102; RESP 18; O2SAT 91
[2023-06-30 14:26] VITALS: O2SAT 86; O2SAT 92; O2SAT 94
--- NOTE | 2023-06-30 14:34 | CTR_ITS ---
PROCEDURE INFORMATION: Exam: CTA Chest With Contrast Exam date and time: 06/30/2023 3:24 PM Age: 83 years old Clinical indication: Dyspnea; Prior surgery; Surgery date: 6+ months; Surgery type: Aaa repair, stents; Additional info: Dyspnea/tachycardia - post covid TECHNIQUE: Imaging protocol: Computed tomographic angiography of the chest with contrast. Exam focused on the arteries. 3D rendering (Not supervised by radiologist): MIP and/or 3D reconstructed images were created by the technologist. Radiation optimization: All CT scans at this facility use at least one of these dose optimization techniques: automated exposure control; mA and/or kV adjustment per patient size (includes targeted exams where dose is matched to clinical indication); or iterative reconstruction. Contrast material: OMNI 350; Contrast volume: 100 ml; Contrast route: INTRAVENOUS (IV); REPORTING DATA: Count of CT and Cardiac NM exams in prior 12 months: This patient has received 0 known CTs and 0 known cardiac nuclear medicine studies in the 12 months prior to the current study. COMPARISON: CT angio chest PE protcl [id number] 07/16/2020 1:54 PM RADIATION DOSE METRICS: Total DLP (mGy-cm): 370 FINDINGS: Pulmonary arteries: No central or segmental pulmonary emboli. Aorta: No aortic aneurysm or dissection. Lungs: Right upper lobe masslike consolidation 6 mm left lower lobe pulmonary nodule on series 6, image 238. Numerous other smaller pulmonary nodules are also seen such as in the right apex image 99 and 106. Pleural spaces: No pneumothorax. No pleural effusion. Heart: Extensive coronary calcifications. Small pericardial effusion. Lymph nodes: Mediastinal/hilar adenopathy is present. Bones/joints: No acute findings. Soft tissues: Small hiatal hernia. CT/CT angio chest PE protcl [id number] IMPRESSION: Large right upper lobe masslike consolidation, infectious/inflammatory versus neoplastic with additional pulmonary nodules measuring up to 6 mm as well. Follow-up to resolution will be needed for further characterization. Mediastinal/hilar adenopathy is also present. No evidence of pulmonary embolism.
[2023-06-30] MEDS: iohexol 350 mg/mL 500 mL Btl (per mL) IV (15:26)
[2023-06-30 16:05] VITALS: BP 114/62; PULSE 91; RESP 18; O2SAT 93
--- NOTE | 2023-07-01 17:46 | DCPLANNER ---
Message sent to pulm. to follow up with Dr Escalante RT upper lobe lung mass.
== END 2023-06-30 17:36 | disposition home or self-care (01) ==
PROVIDERS: Emergency Medicine; Emergency Provider Family Medicine; PCP Nurse Practitioner Family
DX: J18.9 Pneumonia, unspecified organism (principal); R91.8 Other nonspecific abnormal finding of lung field; Z87.891 Personal history of nicotine dependence; I11.0 Hypertensive heart disease with heart failure; I50.9 Heart failure, unspecified; E78.5 Hyperlipidemia, unspecified; Z95.1 Presence of aortocoronary bypass graft
CPT/HCPCS: 36415; 71045; 71275; 80053; 83880; 85025; Q9967